=== PATIENT | male | born 1955 | race Caucasian/White ===

== ENCOUNTER → 2016-10-13 | Day surgery (SDC) | payer MEDICARE, MEDICAID | END | disposition home or self-care (01) | LOC: RADANGIO 09:33 | PROVIDERS: ATTEND Urology | DX: N39.0 Urinary tract infection, site not specified (principal) | CPT/HCPCS: 36569; 76937; 77001; C1725 ==

== ENCOUNTER 2024-06-18 11:12 | Emergency (ER) | payer MEDICARE, MEDICAID ==
[~2024-06-18] VITALS: Ht 167.6 cm; Wt 61.2 kg
[2024-06-18 11:12] VITALS: O2SAT 99
[2024-06-18 11:15] VITALS: BP 152/109; PULSE 75; RESP 16; TEMP 37.2; O2SAT 100
[2024-06-18] MEDS: ACETAMINOPHEN 325MG TABLET PO ONE (12:01)
[2024-06-18 12:07] LABS: BASOPHILS % 0.2 % (0.0-2.0); HEMATOCRIT. 41.5 % (42.0-52.0); HEMOGLOBIN. 14.3 g/dL (14.0-18.0); LYMPHOCYTES % 7.5 % (20.0-50.0); MEAN CORPUSCULAR HEMOGLOBIN 32.9 pg (28.0-32.0); MEAN CORPUSCULAR HGB CONC 34.6 g/dL (31.0-37.0); MEAN CORPUSCULAR VOLUME 95.2 fL (80.0-94.0); MONOCYTES % 5.8 % (2.0-8.0); NEUTROPHILS % 86.5 % (40.0-76.0); PLATELET 207 x1000/uL (130-400); RED BLOOD CELL COUNT 4.36 mill/uL (4.7-6.1); RED CELL DISTRIBUTION WIDTH 12.6 % (11.6-14.6); WHITE BLOOD COUNT 18.4 x1000/uL (4.5-11.0)
[2024-06-18 12:15] LABS: CLARITY URINE CLOUDY (CLEAR); COLOR URINE DARK YELLOW (YELLOW); GLUCOSE URINE NEGATIVE (NEGATIVE); KETONES URINE TRACE (NEGATIVE); LEUKOCYTE ESTERASE URINE 3+ (NEGATIVE); NITRITE URINE NEGATIVE (NEGATIVE); OCCULT BLOOD URINE TRACE (NEGATIVE); PH URINE 8.5 (4.5-8.0); PROTEIN URINE 1+ (NEGATIVE); SPECIFIC GRAVITY URINE 1.019 (1.005-1.030)
[2024-06-18 12:19] LABS: CHLORIDE 99 mEq/L (98-107); POTASSIUM 3.6 mEq/L (3.5-5.1); SODIUM 132 mEq/L (136-145)
[2024-06-18 12:20] LABS: CARBON DIOXIDE 28 mEq/L (21-32)
[2024-06-18 12:25] LABS: CREATININE 0.5 mg/dL (0.6-1.3); GLUCOSE 137 mg/dL (70-105); UREA NITROGEN BLOOD 9 mg/dL (9-23)
[2024-06-18 12:35] LABS: SQUAMOUS EPITHELIAL CELL URINE 2+ /lpf (RARE/1+)
[2024-06-18 12:38] LABS: BACTERIA URINE 3+; WBC URINE 50-100 /hpf (0-2)
[2024-06-18] MEDS ORDERED: SULF1TAB48 MT (14:25)
[2024-06-18] MEDS ORDERED: LEVO-65 MT (14:25)
== END 2024-06-18 15:12 | disposition home or self-care (01) ==
LOC: ER 11:12
DX: N49.2 Inflammatory disorders of scrotum (principal); N39.0 Urinary tract infection, site not specified; Z88.0 Allergy status to penicillin; Z98.890 Other specified postprocedural states
CPT/HCPCS: 36415; 51702; 76870; 80048; 81003; 83605; 85025; 93976; 99284